=== PATIENT | male | born 1960 | race Caucasian/White ===

== ENCOUNTER 2017-02-20 06:24 | Inpatient (IN) | payer OTHER, BC ==
[2017-02-14 11:17] LABS: BASOPHILS 0.4 %; BASOPHILS ABSOLUTE 0.03 10/3/uL (0.0-0.16); EOSINOPHILS 0.7 %; EOSINOPHILS ABSOLUTE 0.06 10/3/uL (0.0-0.53); HEMATOCRIT 43.6 % (40.0-51.0); HEMOGLOBIN 14.9 g/dL (13.6-17.8); IMMATURE GRANULOCYTES 0.4 %; IMMATURE GRANULOCYTES ABSOLUTE 0.03 10/3/uL (0.0-0.11); LYMPHOCYTES 27.8 %; LYMPHOCYTES ABSOLUTE 2.38 10/3/uL (0.67-4.30); MEAN CORPUSCULAR HEMOGLOB 32.9 pg (26.0-34.0); MEAN PLATELET VOLUME 8.6 fL (9.2-13.0); MONOCYTES 7.8 %; MONOCYTES ABSOLUTE 0.67 10/3/uL (0.21-1.20); NEUTROPHILS 62.9 %; NEUTROPHILS ABSOLUTE 5.38 10/3/uL (2.02-8.40); PLATELET COUNT 246 10/3/uL (150-400); RED CELL COUNT 4.53 10/6/uL (4.7-6.1); WHITE BLOOD CELLS 8.6 10/3/uL (4.5-10.5)
[2017-02-14 11:18] LABS: MANUAL DIFF NO %; MEAN CORPUS HGB CONC 34.2 g/dL (32.0-36.0); MEAN CORPUSCULAR VOLUME 96.2 fL (80-100)
[2017-02-14 11:24] LABS: PROTIME (NOT ORD) 12.7 SEC (12.0-14.5)
[2017-02-14 11:36] LABS: % IRON SAT 22 % (20-50); A/G RATIO 1.2 (0.7-1.9); ALBUMIN 3.7 G/DL (3.5-5.0); ALKALINE PHOSPHATASE 92 U/L (45-117); CALCIUM, SERUM 8.8 MG/DL (8.5-10.4); CHLORIDE, SERUM 107 MMOL/L (96-112); GFR AFRICAN AMERICAN 98 ML/MIN (>=60); GFR NON AFRICAN AMERICAN 84 ML/MIN (>=60); GLUCOSE, SERUM 116 MG/DL (60-99); IRON BINDING CAPACITY 314 MCG/DL (250-450); IRON, SERUM 68 MCG/DL (35-150); POTASSIUM, SERUM 4.3 MMOL/L (3.5-5.3); SGOT(AST) 20 U/L (5-40); SGPT(ALT) 40 U/L (5-65); SODIUM, SERUM 142 MMOL/L (135-148); TOTAL BILIRUBIN 0.3 MG/DL (0-1.2); TOTAL PROTEIN 6.7 G/DL (6.0-8.5)
[2017-02-14 11:39] LABS: BUN (BLOOD UREA NITROGEN) 16 MG/DL (6-23); CO2 (CARBON DIOXIDE) 34 MMOL/L (24-34)
[2017-02-14 12:34] LABS: ASCORBIC ACID (UR NOT ORDER) NEG (NEG); BILIRUBIN, URINE NEGATIVE (NEG); KETONE, URINE NEGATIVE (NEG); LEUKOCYTE ESTERASE(NOT OR NEG (NEG); WBC (NOT ORDERED) (RFLEX) 1 (0-5)
--- NOTE | ~2017-02-20 | DS ---
Discharge Summary [facility] [address] [place]. [address] NAME: BRAYDEN VIRAMONTES : 62 STATUS : DIS IN PAT#: [id number] AGE: 56 ADM/REG DATE : 02/20/17 MR#: [id number] REPORT SERV DATE: 03/04/17 DICTATED BY: MORALES HURT JR. DATE: 03/04/17 REPORT STATUS : Draft TRANSCRIBED BY: ERIKA DATE: 03/04/17 Data Collection from hospitalization DISCHARGE DIAGNOSES: 1. Coronary artery disease. 2. Chronic obstructive pulmonary disease with persistent tobacco abuse. 3. Hypertension. CONSULTATIONS: Morales Cárdenas M.D. PROCEDURES PERFORMED: Robotic assisted mid CAB, left internal mammary artery, the left anterior descending, transesophageal echocardiogram, and intercostal nerve block, 02/20/2017. MEDICATIONS: 1. Vitamin C 2000 mg daily. 2. Aspirin 324 mg daily. 3. Lipitor 40 mg at bedtime. 4. Coreg 6.25 mg twice daily. 5. Plavix 75 mg daily. 6. Imdur 30 mg daily. 7. Altace 2.5 mg daily. 8. Vitamin D 1000 units daily. 9. Align probiotic one daily. 10.Zegerid one daily. CONDITION AT DISCHARGE: Upon discharge he did appear to be doing well and had no complaints. DISPOSITION: He was discharged home to continue an 1800-calorie ADA cardiac diet with activity as discussed. He was to follow up with me in the office on 03/24/2017. HOSPITAL COURSE: This 56-year-old male underwent an elective cardiac catheterization on 01/24/2017 for history of chest pain and abnormal stress test. He had significant risk factors for coronary artery disease and it was felt that he needed to undergo catheterization. His arteriogram had revealed an occluded ostial LAD with hqiz-ib-rnam and rkmqg-vh-hojj collateralization. Echocardiogram had revealed normal LV size with moderate systolic dysfunction and estimated ejection fraction of 40%, regional wall motion abnormalities, and mild diastolic dysfunction. No significant valvular disease. He underwent lung screening, CT of the chest, secondary to persistent tobacco abuse which did not show any masses or adenopathy, only evidence of COPD. He was now admitted for robotic mid CAB and further treatment. Upon admission to the hospital, he had been taken to the operating room where he did undergo the above procedure. He tolerated this well and was transferred to the recovery room. Postoperatively, he had been seen by Dr. Morales Cárdenas for Cardiology evaluation, and he did agree with current treatment plan. He felt the patient was doing well postoperatively. On postop day #1, he was afebrile and his vital signs were stable. He did appear to be doing well postoperatively. He had been placed on Flomax and was felt to have had Stokes trauma. He was continued on supportive care. He had been placed on Toradol for pain. On postop day #2, he did continue to do well and had no new Discharge Summary [address] [address] NAME: BRAYDEN VIRAMONTES : 62 STATUS : DIS IN PAT#: [id number] AGE: 56 ADM/REG DATE : 02/20/17 MR#: [id number] REPORT SERV DATE: 03/04/17 DICTATED BY: MORALES HURT JR. DATE: 03/04/17 REPORT STATUS : Draft TRANSCRIBED BY: ERIKA DATE: 03/04/17 complaints. He did have some pain at the chest tube site; however, it did resolve. He was continued on aspirin and Lipitor as well as Coreg and ramipril. He was evaluated by Physical Therapy. On 02/24/2017 he was doing well and had been in sinus rhythm on telemetry. His incision looked good and due to his stable condition, he was then discharged with the above instructions. Information collected by: Alyssa Day. I submit the above information as my discharge summary. JEN/ERIKA Morales Hurt Jr., M.D. / [id number] CC: Becka Nuno Jr., Jr., M.D.
--- NOTE | ~2017-02-20 | OP ---
Record Of Operation [facility] [address] [place]. [address] NAME: BRAYDEN VIRAMONTES : 62 STATUS : ADM IN PAT#: [id number] AGE: 56 ADM/REG DATE : 02/20/17 MR#: [id number] REPORT SERV DATE: 02/20/17 DICTATED BY: MORALES HURT JR. DATE: 02/20/17 REPORT STATUS : Draft TRANSCRIBED BY: MODL DATE: 02/20/17 DATE OF PROCEDURE: 02/20/2017 PREOPERATIVE DIAGNOSES: Coronary artery disease, with an occlusion in the left anterior descending artery, COPD with persistent tobacco abuse, hypertension. POSTOPERATIVE DIAGNOSES: Coronary artery disease, with an occlusion in the left anterior descending artery, COPD with persistent tobacco abuse, hypertension. NAME OF OPERATION: Robotic assisted MIDCAB, left internal mammary artery, the left anterior descending, transesophageal echocardiogram, and intercostal nerve block. SURGEON: Morales Hurt M.D. ELECTRONEURODIAGNOSTIC TECHNICIAN: Ashish Munoz. ANESTHESIA: General endotracheal. FINDINGS: The patient was noted to have an occluded but still patent left anterior descending artery. This is obviously filled with collaterals. The left internal mammary artery had excellent flows. Post bypass, the Doppler signals in the bypass graft were excellent. On transesophageal echocardiogram, the patient is not having any structural heart disease. He specifically had a normal left ventricular ejection fraction with no mitral, aortic, or tricuspid valvular disease. There was no contraindications seen to proceed on with a robotic-assisted MIDCAB. DETAILS OF OPERATION: After adequate general anesthesia, the patient was intubated. A left- sided double-lumen endotracheal tube was then placed. A transesophageal echocardiogram was also performed with the above findings. The patient's neck, chest, abdomen, and extremities were prepped and draped in the routine sterile fashion. A camera was introduced into the left lateral chest wall region under direct visualization. The chest was insufflated to 8 cm of pressure. Remaining 2 trocars were placed under direct visualization. The da Heath was docked followed by placement of instruments under direct visualization. The left internal mammary artery was taken down in its usual fashion. Clips were placed on the mammary side on the vessel to side. It was taken out past the bifurcation. Pericardium was then opened identifying the targeted vessel. It was felt this was a graftable vessel. Heparin was administered followed by division of the left internal mammary artery distally. It was then secured next to the anastomotic site. The anterior MIDCAB incision was then marked. The da Heath instruments were withdrawn and the da Heath undocked. The left anterior MIDCAB incision was then made with dissection carried down into the mediastinum. Left pleural space was opened. The target vessel was seen. The proximal and distal occlusion were performed. The patient had previously been heparinized. The stabilizing device was then placed on the left anterior descending artery at the targeted site. The vessel was opened. The left internal mammary artery was anastomosed to the left anterior descending using 8-0 Dacron suture. The pedicle was secured with interrupted 6-0 Prolene sutures. Left pleural chest tube was placed. Chest was thoroughly irrigated using sterile Record Of Operation [address] [address] NAME: BRAYDEN VIRAMONTES : 62 STATUS : ADM IN [facility]#: [id number] AGE: 56 ADM/REG DATE : 02/20/17 MR#: [id number] REPORT SERV DATE: 02/20/17 DICTATED BY: MORALES HURT JR. DATE: 02/20/17 REPORT STATUS : Draft TRANSCRIBED BY: ERIKA DATE: 02/20/17 saline. The lung was reinflated. The trocar sites were closed with running Vicryl sutures. The skin was closed with running monofilament suture. A Dermabond dressing was applied. An intercostal nerve block was performed with ropivacaine. The patient was extubated in the room and transferred back to the intensive care unit in stable condition. PRIMARY CARE PHYSICIAN: Dr. Viktoria Shukla. TORY/ERIKA Morales Hurt Jr., M.D. / [id number] CC: Becka Nuno Jr., Jr., M.D.
[~2017-02-20 06:24] MED LIST: ALIGN4 MG PO; ASA5GR PO; ASAB PO; CHANTIX STARTER PACK PO; COREG6 PO; IMDUR30 PO; LIPITOR40 PO; PRIN10 PO; VITAMIN D1000 UNI1 PO; VITC500 PO; ZEGERID1 CAP PO
[2017-02-20 13:29] LABS: BE (BASE EXCESS) -3.4 MEQ/L (0 +/- 2.5); CARBOXYHEMOGLOBIN 0.3 % (0-3); DEVICE SM; HCO3 (ACTUAL BICARBONATE) 23.1 MEQ/L (23-27); HEMOBLOGIN CONTENT 14.2 G/DL (14-18); INSTRUMENT SERIAL # 11843; METHEMOGLOBIN 0.4 % (0-3); OPERATOR ID 32214; PCO2 (CO2 TENSION) 47 MMHG (35-45); PO2 (O2 TENSION) 88 MMHG (79-93); SAMPLE Arterial; pH 7.31 (7.37-7.43)
[2017-02-20 13:36] LABS: BASOPHILS 0.1 %; BASOPHILS ABSOLUTE 0.02 10/3/uL (0.0-0.16); EOSINOPHILS 0.4 %; EOSINOPHILS ABSOLUTE 0.06 10/3/uL (0.0-0.53); HEMATOCRIT 39.8 % (40.0-51.0); HEMOGLOBIN 13.6 g/dL (13.6-17.8); IMMATURE GRANULOCYTES 0.6 %; IMMATURE GRANULOCYTES ABSOLUTE 0.09 10/3/uL (0.0-0.11); LYMPHOCYTES 10.8 %; LYMPHOCYTES ABSOLUTE 1.54 10/3/uL (0.67-4.30); MEAN CORPUS HGB CONC 34.2 g/dL (32.0-36.0); MEAN CORPUSCULAR HEMOGLOB 32.8 pg (26.0-34.0); MEAN CORPUSCULAR VOLUME 95.9 fL (80-100); MEAN PLATELET VOLUME 8.4 fL (9.2-13.0); MONOCYTES 5.6 %; NEUTROPHILS 82.5 %; NEUTROPHILS ABSOLUTE 11.78 10/3/uL (2.02-8.40); RBC DISTRIBUTION WIDTH 13.2 % (12.0-16.0); RED CELL COUNT 4.15 10/6/uL (4.7-6.1)
[2017-02-20 13:37] LABS: MANUAL DIFF NO %; PLATELET COUNT 171 10/3/uL (150-400); WHITE BLOOD CELLS 14.3 10/3/uL (4.5-10.5)
[2017-02-20 13:44] LABS: INTERNATIONAL NORMAL RATI 1.1 UNITS (-); PARTIAL THROMBO TIME 46.2 SEC (22.5-37.2); PROTIME (NOT ORD) 14.4 SEC (12.0-14.5)
[2017-02-20 13:47] LABS: BUN (BLOOD UREA NITROGEN) 14 MG/DL (6-23); CALCIUM, SERUM 8.6 MG/DL (8.5-10.4); CHLORIDE, SERUM 111 MMOL/L (96-112); CREATININE 0.84 MG/DL (0.70-1.30); GFR AFRICAN AMERICAN 114 ML/MIN (>=60); GFR NON AFRICAN AMERICAN 99 ML/MIN (>=60); GLUCOSE, SERUM 107 MG/DL (60-99); POTASSIUM, SERUM 4.6 MMOL/L (3.5-5.3); SODIUM, SERUM 142 MMOL/L (135-148)
[2017-02-20 13:49] LABS: CO2 (CARBON DIOXIDE) 26 MMOL/L (24-34)
[2017-02-20 18:52] LABS: HEMATOCRIT 37.5 % (40.0-51.0); HEMOGLOBIN 12.8 g/dL (13.6-17.8)
[2017-02-20 18:59] LABS: POTASSIUM, SERUM 4.6 MMOL/L (3.5-5.3)
[2017-02-20 23:59] LABS: HEMOGLOBIN 12.1 g/dL (13.6-17.8)
[2017-02-21 00:09] LABS: POTASSIUM, SERUM 4.1 MMOL/L (3.5-5.3)
[2017-02-21 04:12] LABS: BASOPHILS 0.1 %; BASOPHILS ABSOLUTE 0.01 10/3/uL (0.0-0.16); EOSINOPHILS 0 %; HEMATOCRIT 35.4 % (40.0-51.0); HEMOGLOBIN 12.1 g/dL (13.6-17.8); IMMATURE GRANULOCYTES 0.4 %; IMMATURE GRANULOCYTES ABSOLUTE 0.06 10/3/uL (0.0-0.11); LYMPHOCYTES 10.6 %; LYMPHOCYTES ABSOLUTE 1.58 10/3/uL (0.67-4.30); MEAN CORPUS HGB CONC 34.2 g/dL (32.0-36.0); MEAN CORPUSCULAR HEMOGLOB 32.4 pg (26.0-34.0); MEAN CORPUSCULAR VOLUME 94.7 fL (80-100); MEAN PLATELET VOLUME 8.6 fL (9.2-13.0); MONOCYTES 11.4 %; NEUTROPHILS 77.5 %; NEUTROPHILS ABSOLUTE 11.54 10/3/uL (2.02-8.40); PLATELET COUNT 172 10/3/uL (150-400); RBC DISTRIBUTION WIDTH 12.8 % (12.0-16.0); RED CELL COUNT 3.74 10/6/uL (4.7-6.1); WHITE BLOOD CELLS 14.9 10/3/uL (4.5-10.5)
[2017-02-21 04:14] LABS: MANUAL DIFF NO %
[2017-02-21 04:27] LABS: BUN (BLOOD UREA NITROGEN) 12 MG/DL (6-23); CALCIUM, SERUM 8.3 MG/DL (8.5-10.4); CHLORIDE, SERUM 105 MMOL/L (96-112); CO2 (CARBON DIOXIDE) 24 MMOL/L (24-34); CREATININE 0.82 MG/DL (0.70-1.30); GFR AFRICAN AMERICAN 115 ML/MIN (>=60); GFR NON AFRICAN AMERICAN 100 ML/MIN (>=60); POTASSIUM, SERUM 3.9 MMOL/L (3.5-5.3)
[2017-02-21 04:28] LABS: GLUCOSE, SERUM 97 MG/DL (60-99); SODIUM, SERUM 135 MMOL/L (135-148)
[2017-02-22 06:37] LABS: HEMATOCRIT 36.5 % (40.0-51.0); HEMOGLOBIN 12.5 g/dL (13.6-17.8); MEAN CORPUS HGB CONC 34.2 g/dL (32.0-36.0); MEAN CORPUSCULAR HEMOGLOB 32.6 pg (26.0-34.0); MEAN CORPUSCULAR VOLUME 95.3 fL (80-100); MEAN PLATELET VOLUME 8.6 fL (9.2-13.0); PLATELET COUNT 159 10/3/uL (150-400); RBC DISTRIBUTION WIDTH 13.1 % (12.0-16.0); RED CELL COUNT 3.83 10/6/uL (4.7-6.1); WHITE BLOOD CELLS 11.5 10/3/uL (4.5-10.5)
[2017-02-22 06:41] LABS: INTERNATIONAL NORMAL RATI 1.1 UNITS (-); PROTIME (NOT ORD) 13.8 SEC (12.0-14.5)
[2017-02-22 06:44] LABS: BUN (BLOOD UREA NITROGEN) 15 MG/DL (6-23); CALCIUM, SERUM 8.5 MG/DL (8.5-10.4); CHLORIDE, SERUM 102 MMOL/L (96-112); CO2 (CARBON DIOXIDE) 24 MMOL/L (24-34); CREATININE 0.97 MG/DL (0.70-1.30); GFR AFRICAN AMERICAN 101 ML/MIN (>=60); GFR NON AFRICAN AMERICAN 88 ML/MIN (>=60); GLUCOSE, SERUM 126 MG/DL (60-99); POTASSIUM, SERUM 4.7 MMOL/L (3.5-5.3); SODIUM, SERUM 133 MMOL/L (135-148)
[2017-02-22 06:46] LABS: MANUAL DIFF YES %
[2017-02-22 09:33] LABS: BAND NEUTROPHILS 5 %; LYMPHOCYTES 15 %; LYMPHOCYTES ABSOLUTE (CALC) 1.73 10/3/uL (0.67-4.30); MONOCYTES 13 %; NEUTROPHILS ABSOLUTE (CALC) 8.28 10/3/uL (2.02-8.40); PLATELET ESTIMATE ADQ (ADEQUATE); SEGMENTED NEUTROPHIL (0) 67 %; TOTAL NUCLEATED CELLS 100
[2017-02-22 09:34] LABS: RBC MORPHOLOGY NORM (NORMAL)
[2017-02-23 05:37] LABS: BASOPHILS 0.1 %; BASOPHILS ABSOLUTE 0.01 10/3/uL (0.0-0.16); EOSINOPHILS 1.3 %; EOSINOPHILS ABSOLUTE 0.14 10/3/uL (0.0-0.53); HEMATOCRIT 37.2 % (40.0-51.0); HEMOGLOBIN 12.5 g/dL (13.6-17.8); IMMATURE GRANULOCYTES 0.3 %; IMMATURE GRANULOCYTES ABSOLUTE 0.03 10/3/uL (0.0-0.11); LYMPHOCYTES 21.3 %; LYMPHOCYTES ABSOLUTE 2.23 10/3/uL (0.67-4.30); MANUAL DIFF NO %; MEAN CORPUS HGB CONC 33.6 g/dL (32.0-36.0); MEAN CORPUSCULAR HEMOGLOB 32.1 pg (26.0-34.0); MEAN CORPUSCULAR VOLUME 95.4 fL (80-100); MEAN PLATELET VOLUME 8.9 fL (9.2-13.0); MONOCYTES 11.6 %; MONOCYTES ABSOLUTE 1.22 10/3/uL (0.21-1.20); NEUTROPHILS 65.4 %; NEUTROPHILS ABSOLUTE 6.86 10/3/uL (2.02-8.40); PLATELET COUNT 176 10/3/uL (150-400); RBC DISTRIBUTION WIDTH 13.2 % (12.0-16.0); WHITE BLOOD CELLS 10.5 10/3/uL (4.5-10.5)
[2017-02-23 05:45] LABS: CHLORIDE, SERUM 102 MMOL/L (96-112); CO2 (CARBON DIOXIDE) 28 MMOL/L (24-34); CREATININE 0.86 MG/DL (0.70-1.30); GFR AFRICAN AMERICAN 113 ML/MIN (>=60); GFR NON AFRICAN AMERICAN 98 ML/MIN (>=60); GLUCOSE, SERUM 117 MG/DL (60-99); POTASSIUM, SERUM 4.4 MMOL/L (3.5-5.3); SODIUM, SERUM 135 MMOL/L (135-148)
[2017-02-23 05:46] LABS: BUN (BLOOD UREA NITROGEN) 11 MG/DL (6-23)
[2017-02-24] MEDS ORDERED: PLAVIX PO (16:35)
[2017-02-24] MEDS ORDERED: ALTA2.5 PO ×2 (16:35→16:36)
[2017-02-24] MEDS ORDERED: PCET PO (16:37)
== END 2017-02-24 17:29 | disposition home or self-care (01) | DRG 236 ==
LOC: SDC/OF 06:24 → CVICU 12:22 → 5NO 02-21 10:21 → CVICU 02-21 10:30 → 5NO 02-21 12:02
PROVIDERS: Thoracic Surgery (Cardiothoracic Vascular Surgery)
PROC: 8E0W4CZ Robotic Assisted Procedure of Trunk Region, Percutaneous Endoscopic Approach (ICD-10-PCS; 2017-02-20)
PROC: 3E0T3BZ Introduction of Anesthetic Agent into Peripheral Nerves and Plexi, Percutaneous Approach (ICD-10-PCS; 2017-02-20)
PROC: 02100Z9 Bypass Coronary Artery, One Artery from Left Internal Mammary, Open Approach (ICD-10-PCS; principal; 2017-02-20 07:30)
PROC: 5A1221Z Performance of Cardiac Output, Continuous (ICD-10-PCS; 2017-02-20 07:30)
DX: I25.10 Atherosclerotic heart disease of native coronary artery without angina pectoris (principal); J44.9 Chronic obstructive pulmonary disease, unspecified; I10 Essential (primary) hypertension; F17.210 Nicotine dependence, cigarettes, uncomplicated; F10.20 Alcohol dependence, uncomplicated; K21.9 Gastro-esophageal reflux disease without esophagitis; G47.33 Obstructive sleep apnea (adult) (pediatric)
CPT/HCPCS: 36415; 71010; 71020; 80048; 80053; 81001; 82330; 82803; 82805; 82947; 82962; 83036; 83540; 83550; 83735; 84132; 84295; 85014; 85018; 85025; 85347; 85610; 85730; 86850; 86900; 86901; 86920; 87641; 93005; 93312; 93320; 93325; 94640; 97161-GP; A9270-GY; C1769; C1894; J0690; J1170; J1644; J1885; J2250; J2370; J2405; J2440; J2710; J2720; J2795; J3010; J3475; J3480; P9045